=== PATIENT | male | born 1975 | race Caucasian/White ===

== ENCOUNTER 2019-03-22 20:56 | Emergency (ER) | payer OTHER ==
[2019-03-22] MEDS ORDERED: HYDROmorphone 1 MG/ML Syringe IVPUSH ONE ×2 (21:01→21:38)
[2019-03-22] MEDS ORDERED: Ondansetron 4 MG/2 ML SDV IV ONE (21:02)
[2019-03-22] MEDS ORDERED: Sodium Chloride 0.9% 1,000 ML IV ONE (21:09)
[2019-03-22] MEDS ORDERED: Albuterol 0.083% 2.5 MG/3 ML Neb Soln NEB ONE (21:14)
[2019-03-22] MEDS ORDERED: LORazepam 2 MG/ML Syringe IVPUSH ONE (21:17)
[2019-03-22 21:31] LABS: ANION GAP 16.3; CHLORIDE,CL 99 mmol/L (101-111); SODIUM,NA 136 mmol/L (135-145)
[2019-03-22] MEDS ORDERED: Iopamidol 755 Mg/ML 100 ML Bottle IVPUSH ONE (21:32)
[2019-03-22 21:52] LABS: BASE EXCESS ARTERIAL 1 mmol/L ((-2)-(+3)); BICARBONATE,ARTERIAL 27.3 mmol/L (22-26); O2 DELIVERY DEVICE NASAL CANNULA; O2 SATURATION ARTERIAL 97 % (95-100); PCO2 ARTERIAL 51 mmHg (35-45); PO2 ARTERIAL 86 mmHg (70-100)
[2019-03-22 21:57] LABS: O2 FLOW RATE 15
[2019-03-22 21:58] LABS: ALLEN TEST pos
[2019-03-22 22:08] VITALS: BP 153/97
[2019-03-22] MEDS ORDERED: Heparin Sodium 5,000 Units/ML Vial IVPUSH ONE (22:10)
[2019-03-22] MEDS ORDERED: Heparin Sodium/0.45% NaCl 25,000 UNITS/500 ML BAG IV SCH (22:15)
[2019-03-22] MEDS ORDERED: Ketorolac 30 MG/ML SDV IVPUSH ONE (22:48)
[2019-03-22] MEDS ORDERED: Ketorolac 30 MG/ML SDV ONE (22:49)
--- NOTE | 2019-03-22 22:53 | EDM.PDOC ---
"ED HPI GENERAL MEDICAL PROBLEM - General Chief Complaint: Chest Pain Stated Complaint: CHEST PAIN Time Seen by Provider: 03/22/19 21:00 Source of Information: Reports: Patient, Family History Limitations: Reports: No Limitations - History of Present Illness INITIAL COMMENTS - FREE TEXT/NARRATIVE: sudden onset right lower chest pain, worse with movement and deep breathing, started while having cigarette. Intermittent right shoulder pain to back last edna and through night from doing heavy lifting yesterday, different than this. No nasuea or vomiting, slight SOB as hurts to breathe. Right Chest Pain Score (Numeric/FACES): 10 - Related Data Allergies Allergy/AdvReac Type Severity Reaction Status Date / Time No Known Allergies Allergy Verified 03/07/16 22:34 Home Meds: Home Meds . [No Known Home Meds] 08/10/14 [History] Past Medical History Cardiovascular History: Reports: Hypertension Respiratory History: Reports: None Gastrointestinal History: Reports: None Genitourinary History: Reports: None Musculoskeletal History: Reports: None Neurological History: Reports: None Psychiatric History: Reports: None Endocrine/Metabolic History: Reports: None Hematologic History: Reports: None Immunologic History: Reports: None Oncologic (Cancer) History: Reports: None Dermatologic History: Reports: None ED ROS GENERAL - Review of Systems Review Of Systems: See Below Constitutional: Reports: Chills, Diaphoresis. Denies: Fever HEENT: Reports: No Symptoms Respiratory: Reports: Shortness of Breath, Cough Cardiovascular: Reports: No Symptoms Endocrine: Reports: No Symptoms GI/Abdominal: Reports: No Symptoms Musculoskeletal: Reports: Shoulder Pain (cyhronic) Skin: Reports: No Symptoms Neurological: Reports: No Symptoms ED EXAM, GENERAL - Physical Exam Exam: See Below Exam Limited By: No Limitations General Appearance: Alert, Anxious, Moderate Distress Eye Exam: Bilateral Eye: EOMI Ears: Normal External Exam, Hearing Grossly Normal Nose: Normal Inspection Throat/Mouth: Normal Oropharynx Head: Atraumatic, Normocephalic Neck: Normal Inspection Respiratory/Chest: Decreased Breath Sounds Cardiovascular: Normal Peripheral Pulses, Regular Rate, Rhythm, No Murmur GI/Abdominal: Normal Bowel Sounds, Soft Back Exam: Normal Inspection, Full Range of Motion Extremities: Normal Inspection, Pedal Edema Neurological: Alert, Oriented, CN II-XII Intact, Normal Cognition Psychiatric: Anxious Skin Exam: Intact, Pallor Course - Vital Signs Last Recorded V/S: Last Vital Signs Temp 96.6 F 03/22/19 20:56 Pulse 87 03/22/19 20:56 Resp 40 H 03/22/19 20:56 BP 153/97 H 03/22/19 20:56 Pulse Ox 95 03/22/19 20:56 - Orders/Labs/Meds Orders: Active Orders 24 hr Category Date Time Status EKG Documentation Completion [RC] URGENT Care 03/22/19 21:02 Active RT Aerosol Therapy [RC] ASDIRECTED Care 03/22/19 21:14 Active Labs: Laboratory Tests 03/22/19 03/22/19 03/22/19 Range/Units 21:05 21:05 21:05 WBC 12.8 H (5.0-10.0) 10^3/uL RBC 5.13 (4.6-6.2) 10^6/uL Hgb 15.9 (14.0-18.0) g/dL Hct 47.7 (40.0-54.0) % MCV 93.0 (80-100) fL MCH 31.0 (27.0-34.0) pg MCHC 33.3 (33.0-35.0) g/dL Plt Count 276 (150-450) 10^3/uL Neut % (Auto) 58.1 (42.2-75.2) % Lymph % (Auto) 25.5 (20.5-50.1) % [place] % (Auto) 12.0 H (2-8) % Eos % (Auto) 4.2 H (1.0-3.0) % Baso % (Auto) 0.2 (0.0-1.0) % PT (9.0-12.0) SEC INR (0.9-1.2) APTT (22.0-34.0) SEC D-Dimer, Quantitative 2060 H (0-400) ng/mL ABG pH (7.35-7.45) ABG pCO2 (35-45) mmHg ABG pO2 (70-100) mmHg ABG HCO3 (22-26) mmol/L ABG O2 Saturation (95-100) % ABG Base Excess ((-2)-(+3)) mmol/L Serafin Test O2 Delivery Device Oxygen Flow Rate Sodium 136 (135-145) mmol/L Potassium 3.3 L (3.6-5.0) mmol/L Chloride 99 L (101-111) mmol/L Carbon Dioxide 24.0 (21.0-31.0) mmol/L Anion Gap 16.3 BUN 10 (7-18) mg/dL Creatinine 1.0 (0.6-1.3) mg/dL Est Cr Clr Drug Dosing TNP Estimated GFR (MDRD) > 60 BUN/Creatinine Ratio 10.00 Glucose 113 H (74-105) mg/dL Lactic Acid (0.5-2.2) mmol/L Calcium 9.2 (8.4-10.2) mg/dl Total Bilirubin 0.4 (0.2-1.0) mg/dL AST 21 (10-42) IU/L ALT 20 (10-60) IU/L Alkaline Phosphatase 64 (42-121) IU/L Troponin I < 0.02 (0.00-0.02) ng/ml B-Natriuretic Peptide (0-100) pg/ml Total Protein 7.9 (6.7-8.2) g/dl Albumin 4.2 (3.2-5.5) g/dl Globulin 3.7 Albumin/Globulin Ratio 1.14 Amylase 81 (28-100) U/L Lipase 35 (22-51) U/L 03/22/19 03/22/19 03/22/19 Range/Units 21:05 21:05 21:05 WBC (5.0-10.0) 10^3/uL RBC (4.6-6.2) 10^6/uL Hgb (14.0-18.0) g/dL Hct (40.0-54.0) % MCV (80-100) fL MCH (27.0-34.0) pg MCHC (33.0-35.0) g/dL Plt Count (150-450) 10^3/uL Neut % (Auto) (42.2-75.2) % Lymph % (Auto) (20.5-50.1) % [place] % (Auto) (2-8) % Eos % (Auto) (1.0-3.0) % Baso % (Auto) (0.0-1.0) % PT 9.5 (9.0-12.0) SEC INR 1.0 (0.9-1.2) APTT (22.0-34.0) SEC D-Dimer, Quantitative (0-400) ng/mL ABG pH (7.35-7.45) ABG pCO2 (35-45) mmHg ABG pO2 (70-100) mmHg ABG HCO3 (22-26) mmol/L ABG O2 Saturation (95-100) % ABG Base Excess ((-2)-(+3)) mmol/L Serafin Test O2 Delivery Device Oxygen Flow Rate Sodium (135-145) mmol/L Potassium (3.6-5.0) mmol/L Chloride (101-111) mmol/L Carbon Dioxide (21.0-31.0) mmol/L Anion Gap BUN (7-18) mg/dL Creatinine (0.6-1.3) mg/dL Est Cr Clr Drug Dosing Estimated GFR (MDRD) BUN/Creatinine Ratio Glucose (74-105) mg/dL Lactic Acid 1.6 (0.5-2.2) mmol/L Calcium (8.4-10.2) mg/dl Total Bilirubin (0.2-1.0) mg/dL AST (10-42) IU/L ALT (10-60) IU/L Alkaline Phosphatase (42-121) IU/L Troponin I (0.00-0.02) ng/ml B-Natriuretic Peptide 8 (0-100) pg/ml Total Protein (6.7-8.2) g/dl Albumin (3.2-5.5) g/dl Globulin Albumin/Globulin Ratio Amylase (28-100) U/L Lipase (22-51) U/L 03/22/19 03/22/19 Range/Units 21:05 21:45 WBC (5.0-10.0) 10^3/uL RBC (4.6-6.2) 10^6/uL Hgb (14.0-18.0) g/dL Hct (40.0-54.0) % MCV (80-100) fL MCH (27.0-34.0) pg MCHC (33.0-35.0) g/dL Plt Count (150-450) 10^3/uL Neut % (Auto) (42.2-75.2) % Lymph % (Auto) (20.5-50.1) % [place] % (Auto) (2-8) % Eos % (Auto) (1.0-3.0) % Baso % (Auto) (0.0-1.0) % PT (9.0-12.0) SEC INR (0.9-1.2) APTT 25.5 (22.0-34.0) SEC D-Dimer, Quantitative (0-400) ng/mL ABG pH 7.35 (7.35-7.45) ABG pCO2 51 H (35-45) mmHg ABG pO2 86 (70-100) mmHg ABG HCO3 27.3 H (22-26) mmol/L ABG O2 Saturation 97 (95-100) % ABG Base Excess 1 ((-2)-(+3)) mmol/L Serafin Test pos O2 Delivery Device Nasal cannula Oxygen Flow Rate 15 Sodium (135-145) mmol/L Potassium (3.6-5.0) mmol/L Chloride (101-111) mmol/L Carbon Dioxide (21.0-31.0) mmol/L Anion Gap BUN (7-18) mg/dL Creatinine (0.6-1.3) mg/dL Est Cr Clr Drug Dosing Estimated GFR (MDRD) BUN/Creatinine Ratio Glucose (74-105) mg/dL Lactic Acid (0.5-2.2) mmol/L Calcium (8.4-10.2) mg/dl Total Bilirubin (0.2-1.0) mg/dL AST (10-42) IU/L ALT (10-60) IU/L Alkaline Phosphatase (42-121) IU/L Troponin I (0.00-0.02) ng/ml B-Natriuretic Peptide (0-100) pg/ml Total Protein (6.7-8.2) g/dl Albumin (3.2-5.5) g/dl Globulin Albumin/Globulin Ratio Amylase (28-100) U/L Lipase (22-51) U/L Meds: Medications Discontinued Medications Generic Name Dose Route Start Last Admin Trade Name Freq PRN Reason Stop Dose Admin Albuterol 2.5 mg 03/22/19 21:14 03/22/19 21:19 Proventil Neb Soln NEB 03/22/19 21:15 2.5 mg ONETIME ONE Administration Heparin Sodium (Porcine) 5,000 units 03/22/19 22:10 03/22/19 22:32 Heparin Sodium IVPUSH 03/22/19 22:11 5,000 units .BOLUS ONE Administration Hydromorphone HCl 1 mg 03/22/19 21:01 03/22/19 21:09 Dilaudid IVPUSH 03/22/19 21:02 1 mg ONETIME ONE Administration Hydromorphone HCl 1 mg 03/22/19 21:38 03/22/19 21:45 Dilaudid IVPUSH 03/22/19 21:39 1 mg ONETIME ONE Administration Sodium Chloride 1,000 mls @ 500 mls/hr 03/22/19 21:09 03/22/19 21:05 Normal Saline IV 03/22/19 23:08 500 mls/hr .BOLUS ONE Administration Heparin Sodium/Sodium Chloride 25,000 units in 500 mls @ 26 mls/hr 03/22/19 22 :15 Heparin 25,000 Units In 1/2 Ns 500 Ml IV TITRATE MIMA Protocol Iopamidol 100 ml 03/22/19 21:32 03/22/19 21:55 Isovue-370 (76%) IVPUSH 03/22/19 21:33 100 ml ONETIME ONE Administration Ketorolac Tromethamine 30 mg 03/22/19 22:48 03/22/19 22:52 Toradol IVPUSH 03/22/19 22:49 30 mg ONETIME ONE Administration Ketorolac Tromethamine Confirm 03/22/19 22:49 03/22/19 22:54 Toradol Administered 03/22/19 22:50 Not Given Dose 30 mg .ROUTE .STK-MED ONE Lorazepam 0.5 mg 03/22/19 21:17 03/22/19 21:24 Ativan IVPUSH 03/22/19 21:18 0.5 mg ONETIME ONE Administration Ondansetron HCl 4 mg 03/22/19 21:02 03/22/19 21:09 Zofran IV 03/22/19 21:03 4 mg ONETIME ONE Administration - Radiology Interpretation Free Text/Narrative:: [facility] [place] [facility] Final Radiology Report Call: [phone] assistance Online chat: [email or web address] Name: PJ GASTELUM Age: 44Years M Date: 03/22/2019 SSN: -- : 1975 Study: XR CHEST 1 VIEW FRONTAL Requesting Physician: ÓSCAR MILLER Images: 1 Addl Studies: Provided Clinical History: Contrast: Contrast Medium: Contrast Amount: Contrast Method: CONFIDENTIALITY STATEMENT This report is intended only for use by the referring physician, and only in accordance with law. If you received this in error, call [phone]. Page 1 of 1 EXAM: XR Chest, 1 View EXAM DATE/TIME: 03/22/2019 9:17 PM CLINICAL HISTORY: 44 years old, male; Signs and symptoms; Shortness of breath and other: Right chest pain TECHNIQUE: Imaging protocol: XR of the chest, 1 view. COMPARISON: CR Chest 2V 04/18/2017 9:00 AM FINDINGS: Lungs: Right basilar subsegmental atelectasis. Pleural space: Small right pleural effusion. No pneumothorax. Heart/Mediastinum: Cardiac size cannot be accurately assessed in this projection. Bones/joints: Unremarkable. IMPRESSION: Small right pleural effusion. Thank you for allowing us to participate in the care of your patient. Dictated and Authenticated by: Sergio Lama MD 03/22/2019 9:57 PM Central Time ([place] & [place]) [facility] Final Radiology Report Call: [phone] assistance Online chat: [email or web address] Name: PJ GASTELUM Age: 44Years M Date: 03/22/2019 SSN: -- : 1975 Study: CT CHEST W Requesting Physician: ÓSCAR MILLER Images: [id number] Addl Studies: Provided Clinical History: Contrast: With Contrast Medium: [id number] Contrast Amount: 97 mL Contrast Method: lac Page 1 of 2 EXAM: CT Chest With Contrast EXAM DATE/TIME: 03/22/2019 10:19 PM CLINICAL HISTORY: 44 years old, male; Signs and symptoms; Shortness of breath and other: Right sided chest pain, ddimer 0, wbc 12,000 TECHNIQUE: Imaging protocol: Axial computed tomography images of the chest with intravenous contrast. Coronal and sagittal reformatted images were created and reviewed. Radiation optimization: All CT scans at this facility use at least one of these dose optimization techniques: automated exposure control; mA and/or kV adjustment per patient size (includes targeted exams where dose is matched to clinical indication); or iterative reconstruction. Contrast material: [id number]; Contrast volume: 97 ml; Contrast route: LAC; COMPARISON: CR Chest 1V Frontal 03/22/2019 9:17 PM FINDINGS: Lungs: Right basilar subsegmental compressive atelectasis. Pleural space: Small right pleural effusion. No pneumothorax. Heart: No cardiomegaly. No pericardial effusion. Pulmonary arteries: No acute pulmonary embolus. Aorta: No thoracic aortic aneurysm or dissection. Lymph nodes: Unremarkable. No enlarged lymph nodes. Bones/joints: No acute fracture. Soft tissues: Unremarkable. PJ GASTELUM | Final Radiology Report CONFIDENTIALITY STATEMENT This report is intended only for use by the referring physician, and only in accordance with law. If you received this in error, call [phone]. Page 2 of 2 IMPRESSION: 1. No acute pulmonary embolus. 2. Small right pleural effusion. Thank you for allowing us to participate in the care of your patient. Dictated and Authenticated by: Sergio Lama MD 03/22/2019 10:37 PM Central Time ([place] & [place]) - Re-Assessments/Exams Free Text/Narrative Re-Assessment/Exam: Tx via [facility] , Dr Curry accepting of patient. Patient right side chest pain slight improvement after dilaudid, ativan and toradol. Vitals stable. Oxyegen saturation stable on nonrebreather. Departure - Departure Time of Disposition: 23:00 Disposition: DC/Tfer to Acute Hospital 02 Condition: Undetermined Clinical Impression: Atypical chest pain - Discharge Information *PRESCRIPTION DRUG MONITORING PROGRAM REVIEWED*: No *COPY OF PRESCRIPTION DRUG MONITORING REPORT IN PATIENT YOSELIN: No Referrals: PCP,None [Primary Care Provider] - Forms: ED Department Discharge - My Orders Last 24 Hours: My Active Orders 03/22/19 21:02 EKG Documentation Completion [RC] URGENT 03/22/19 21:14 RT Aerosol Therapy [RC] ASDIRECTED - Assessment/Plan Last 24 Hours: My Active Orders 03/22/19 21:02 EKG Documentation Completion [RC] URGENT 03/22/19 21:14 RT Aerosol Therapy [RC] ASDIRECTED"
== END 2019-03-22 23:00 ==
LOC: DL.ED 20:56
DX: R07.89 Other chest pain (principal); I10 Essential (primary) hypertension
CPT/HCPCS: 36415; 36600; 71045; 71260; 80053; 82150; 82803; 83605; 83690; 83880; 84484; 85025; 85379; 85610; 85730; 93005; 94640; 96365; 96366; 96375; 96376; 99285; J1170; J1644; J1885; J2060; J2405; J7030; Q9967; J7613-GY

== ENCOUNTER 2021-02-12 08:41 | Emergency (ER) | payer BC, OTHER ==
--- NOTE | 2021-02-12 08:42 | EDM.PDOC ---
ED HPI GENERAL MEDICAL PROBLEM - General Chief Complaint: General Stated Complaint: AMBULANCE Time Seen by Provider: 02/12/21 08:42 Source of Information: Reports: Patient, Old Records, RN, RN Notes Reviewed History Limitations: Reports: No Limitations - History of Present Illness INITIAL COMMENTS - FREE TEXT/NARRATIVE: Pt arrives to ER from work by [employer] with report that he was at work when he experienced sudden onset of "room spin dizziness" associated with intense nausea. Pt states he was walking across the room and quickly turned around that the dizziness happened. He denies tinnitus, headache, vomiting, neck pain, visual changes, ear pain, muffled hearing, or nasal congestion. Pt states he became diaphoretic and felt some palpitations briefly. Pt admits to anxiety and mild shortness of breath. He is a ferry terminal agent smoker. 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 Hx of HTN, but has not taken his Losartan 25mg for several weeks. Onset: Today, Sudden Duration: Resolved Prior to Arrival Location: Reports: Generalized Severity: Severe Improves with: Reports: None Worsens with: Reports: Movement Associated Symptoms: Reports: No Other Symptoms - Related Data Allergies Allergy/AdvReac Type Severity Reaction Status Date / Time No Known Allergies Allergy Verified 02/12/21 08:55 Home Meds: Home Meds Losartan Potassium 25 mg PO DAILY 02/12/21 [History] Past Medical History HEENT History: Reports: Impaired Vision Cardiovascular History: Reports: Hypertension Respiratory History: Reports: COPD Gastrointestinal History: Reports: None Genitourinary History: Reports: None Musculoskeletal History: Reports: None Neurological History: Reports: None Psychiatric History: Reports: Anxiety Endocrine/Metabolic History: Reports: Obesity/BMI 30+ Hematologic History: Reports: None Immunologic History: Reports: None Oncologic (Cancer) History: Reports: None Dermatologic History: Reports: None Social & Family History - Family History Family Medical History: No Pertinent Family History - Tobacco Use Tobacco Use Status *Q: Current Every Day Tobacco User Tobacco Use Within Last Twelve Months: Cigarettes - Caffeine Use Caffeine Use: Reports: Soda - Alcohol Use Alcohol Use History: Yes Alcohol Use Frequency: Not Used in Over 1 Year - Living Situation & Occupation Living situation: Reports: , with Spouse Occupation: Employed ED ROS GENERAL - Review of Systems Review Of Systems: Comprehensive ROS is negative, except as noted in HPI. ED EXAM, GENERAL - Physical Exam Exam: See Below Exam Limited By: No Limitations General Appearance: Alert, No Apparent Distress, Obese Eye Exam: Bilateral Eye: EOMI, Nystagmus (Lateral gaze), PERRL Ears: Normal External Exam, Normal Canal, Hearing Grossly Normal, Normal TMs Nose: Normal Inspection, Normal Mucosa, No Blood Throat/Mouth: Normal Lips, Normal Voice, No Airway Compromise Head: Atraumatic, Normocephalic Neck: Normal Inspection, Supple, Non-Tender, Full Range of Motion Respiratory/Chest: No Respiratory Distress, Lungs Clear, No Accessory Muscle Use, Chest Non-Tender, Decreased Breath Sounds Cardiovascular: Regular Rate, Rhythm, No Edema GI/Abdominal: Normal Bowel Sounds, Soft, Non-Tender, Other (Benign obese abdomen) Back Exam: Normal Inspection Extremities: Normal Inspection, No Pedal Edema. No: Ellie's Sign Neurological: Alert, Oriented, Normal Cognition, No Motor/Sensory Deficits Psychiatric: Normal Affect, Normal Mood Skin Exam: Warm, Dry, Intact, Normal Color, No Rash #1 Interpretation EKG Date: 02/12/21 Time: 08:53 Rhythm: Other (SR) Rate (Beats/Min): 54 [place]: LAD-Left [place] Deviation (borderline) P-Wave: Present QRS: Other (abnormal R wave progression, early transition) ST-T: Other (Nonspecific T wave changes) QT: Normal Comparison: NA - No Prior EKG Course - Vital Signs Last Recorded V/S: Last Vital Signs Temp 96.9 F 02/12/21 08:49 Pulse 63 02/12/21 08:49 Resp 20 02/12/21 08:49 BP 160/70 H 02/12/21 10:00 Pulse Ox 98 02/12/21 08:49 - Orders/Labs/Meds Orders: Active Orders 24 hr Category Date Time Status EKG 12 Lead [EKG Documentation Completion] [RC] STAT Care 02/12/21 08:50 Active Peripheral IV Care [RC] . DIRECTED Care 02/12/21 08:51 Active UA RFX OFELIA AND CULT IF INDIC [URIN] Stat Lab 02/12/21 10:23 Ordered Sodium Chloride 0.9% [Saline Flush] Med 02/12/21 08:51 Active 10 ml FLUSH ASDIRECTED PRN Peripheral IV Insertion Adult [OM.PC] Stat Oth 02/12/21 08:50 Ordered Medication Orders Sodium Chloride (Sodium Chloride 0.9% 10 Ml Syringe) 10 ml FLUSH ASDIRECTED PRN PRN Reason: Keep Vein Open Last Admin: 02/12/21 09:11 Dose: 10 ml Documented by: NEAL Labs: Laboratory Tests 02/12/21 02/12/21 02/12/21 Range/Units 08:58 08:58 08:58 WBC 8.3 (5.0-10.0) 10^3/uL RBC 5.24 (4.6-6.2) 10^6/uL Hgb 16.0 (14.0-18.0) g/dL Hct 48.0 (40.0-54.0) % MCV 91.6 (80-100) fL MCH 30.5 (27.0-34.0) pg MCHC 33.3 (33.0-35.0) g/dL Plt Count 227 (150-450) 10^3/uL Neut % (Auto) 57.5 (42.2-75.2) % Lymph % (Auto) 28.1 (20.5-50.1) % [place] % (Auto) 9.9 H (2-8) % Eos % (Auto) 3.9 H (1.0-3.0) % Baso % (Auto) 0.6 (0.0-1.0) % Sodium 139 (136-145) mmol/L Potassium 3.9 (3.5-5.1) mmol/L Chloride 102 (98-107) mmol/L Carbon Dioxide 29 (21-32) mmol/L Anion Gap 11.9 (7-13) mEq/L BUN 17 (7-18) mg/dL Creatinine 1.05 (0.70-1.30) mg/dL Est Cr Clr Drug Dosing 103.95 mL/min Estimated GFR (MDRD) > 60 BUN/Creatinine Ratio 16.2 (No establ ref range) Glucose 90 (70-99) mg/dL Hemoglobin A1c 5.8 H (<5.7) % Calcium 8.1 L (8.5-10.1) mg/dL Magnesium 2.0 (1.8-2.4) mg/dL Total Bilirubin 0.2 (0.2-1.0) mg/dL AST 16 (15-37) U/L ALT 31 (16-63) U/L Alkaline Phosphatase 80 (46-116) U/L Troponin I < 0.017 (0.000-0.056) ng/mL Total Protein 6.9 (6.4-8.2) g/dL Albumin 3.4 (3.4-5.0) g/dL Globulin 3.5 Albumin/Globulin Ratio 1.0 TSH, Ultra Sensitive 0.70 (0.36-3.74) uIU/mL Meds: Medications Generic Name Dose Route Start Last Admin Trade Name Freq PRN Reason Stop Dose Admin Sodium Chloride 10 ml 02/12/21 08:51 02/12/21 09:11 Sodium Chloride 0.9% 10 Ml Syringe FLUSH 10 ml ASDIRECTED PRN Administration Keep Vein Open Discontinued Medications Generic Name Dose Route Start Last Admin Trade Name Freq PRN Reason Stop Dose Admin Hydralazine HCl 20 mg 02/12/21 08:53 02/12/21 09:10 Hydralazine 20 Mg/Ml Sdv IVPUSH 02/12/21 08:54 20 mg ONETIME ONE Administration Losartan Potassium 50 mg 02/12/21 09:16 02/12/21 10:00 Losartan 50 Mg Tab PO 02/12/21 09:17 50 mg ONETIME ONE Administration Meclizine HCl 25 mg 02/12/21 08:53 02/12/21 09:10 Meclizine 12.5 Mg Tab PO 02/12/21 08:54 25 mg ONETIME ONE Administration - Radiology Interpretation Free Text/Narrative:: XR Chest: no acute findings per radiologist report. [facility] Final Radiology Report Call: [phone] assistance Online chat: [email or web address] Name: PJ GASTELUM Age: 46Years M Date: 02/12/2021 SSN: -- : 1975 Study: CT HEAD WO CONT Requesting Physician: LIZET GIRON Images: [id number] Addl Studies: Provided Clinical History: new onset vertigo, severe hypertension Contrast: Without Contrast Medium: Contrast Amount: Contrast Method: Page 1 of 2 PROCEDURE INFORMATION: Exam: CT Head Without Contrast Exam date and time: 02/12/2021 9:49 AM Age: 46 years old Clinical indication: Other: New onset vertigo, severe hypertension TECHNIQUE: Imaging protocol: Computed tomography of the head without contrast. Radiation optimization: All CT scans at this facility use at least one of these dose optimization techniques: automated exposure control; mA and/or kV adjustment per patient size (includes targeted exams where dose is matched to clinical indication); or iterative reconstruction. Other technique: STROKE PROTOCOL was implemented. COMPARISON: CT Head wo Cont 08/09/2014 11:24 PM FINDINGS: Brain: Normal. No hemorrhage. Unremarkable white matter. No mass effect. Cerebral ventricles: No ventriculomegaly. Bones/joints: Unremarkable. No acute fracture. Paranasal sinuses: Visualized sinuses are unremarkable. No fluid levels. Mastoid air cells: Complete opacification of right mastoid air cells. Soft tissues: Unremarkable. IMPRESSION: No acute findings. Stable complete opacification of right mastoid air cells. ASSESSMENT: ASPECTS (Sandra Stroke Program Early CT Score) is 10. Thank you for allowing us to participate in the care of your patient. PJ GASTELUM | Final Radiology Report CONFIDENTIALITY STATEMENT This report is intended only for use by the referring physician, and only in accordance with law. If you received this in error, call [phone]. Page 2 of 2 Dictated and Authenticated by: Maria E Guzman MD 02/12/2021 10:13 AM Central Time ([place] & [place]) Departure - Departure Time of Disposition: 10:24 Disposition: Home, Self-Care 01 Condition: Good Clinical Impression: Vertigo, Uncontrolled hypertension, Pre-diabetes - Discharge Information *PRESCRIPTION DRUG MONITORING PROGRAM REVIEWED*: Not Applicable *COPY OF PRESCRIPTION DRUG MONITORING REPORT IN PATIENT YOSELIN: Not Applicable Instructions: Vertigo, Hypertension, Adult, Prediabetes Forms: ED Department Discharge Additional Instructions: Rx: Meclizine 25mg Take your blood pressure medication exactly as prescribed. Low sugar, low carbohydrate diet. Look at [email or web address] for more information. Follow up in clinic this week for vertigo and blood pressure recheck. Sepsis Event Note (ED) - Focused Exam Vital Signs: Vital Signs Temp Pulse Resp BP BP Pulse Ox 02/12/21 10:00 160/70 H 02/12/21 08:49 96.9 F 63 20 198/99 H 98 - My Orders Last 24 Hours: My Active Orders 02/12/21 08:50 EKG 12 Lead [EKG Documentation Completion] [RC] STAT Peripheral IV Insertion Adult [OM.PC] Stat 02/12/21 08:51 Peripheral IV Care [RC] . DIRECTED Sodium Chloride 0.9% [Saline Flush] 10 ml FLUSH ASDIRECTED PRN 02/12/21 10:23 UA RFX OFELIA AND CULT IF INDIC [URIN] Stat - Assessment/Plan Last 24 Hours: My Active Orders 02/12/21 08:50 EKG 12 Lead [EKG Documentation Completion] [RC] STAT Peripheral IV Insertion Adult [OM.PC] Stat 02/12/21 08:51 Peripheral IV Care [RC] . DIRECTED Sodium Chloride 0.9% [Saline Flush] 10 ml FLUSH ASDIRECTED PRN 02/12/21 10:23 UA RFX OFELIA AND CULT IF INDIC [URIN] Stat
[2021-02-12] MEDS ORDERED: Sodium Chloride 0.9% 10 ML Syringe FLUSH PRN (08:51)
[2021-02-12] MEDS ORDERED: Meclizine 12.5 MG Tab PO ONE (08:53)
[2021-02-12] MEDS ORDERED: hydrALAZINE 20 MG/ML SDV IVPUSH ONE (08:53)
--- NOTE | 2021-02-12 09:12 | CR ---
PROCEDURE INFORMATION: Exam: XR Chest Exam date and time: 02/12/2021 9:01 AM Age: 46 years old Clinical indication: Shortness of breath TECHNIQUE: Imaging protocol: XR of the chest. Views: 1 view. COMPARISON: CT Chest w Cont 03/22/2019 10:19 PM FINDINGS: Lungs: Shallow inspiration accentuates the heart size and pulmonary vascularity. No focal consolidation. Pleural spaces: Unremarkable. No pleural effusion. No pneumothorax. Heart/Mediastinum: Unremarkable. No cardiomegaly. Bones/joints: Unremarkable. Other findings: Shallow inspiration. IMPRESSION: No acute findings.
[2021-02-12] MEDS ORDERED: Losartan 50 MG Tab PO ONE (09:16)
[2021-02-12 09:26] LABS: HEMOGLOBIN A1C 5.8 % (<5.7)
[2021-02-12 09:42] LABS: ANION GAP 11.9 mEq/L (7-13); CHLORIDE,CL 102 mmol/L (98-107); SODIUM,NA 139 mmol/L (136-145)
[2021-02-12 10:02] VITALS: BP 160/70
--- NOTE | 2021-02-12 10:13 | CT ---
PROCEDURE INFORMATION: Exam: CT Head Without Contrast Exam date and time: 02/12/2021 9:49 AM Age: 46 years old Clinical indication: Other: New onset vertigo, severe hypertension TECHNIQUE: Imaging protocol: Computed tomography of the head without contrast. Radiation optimization: All CT scans at this facility use at least one of these dose optimization techniques: automated exposure control; mA and/or kV adjustment per patient size (includes targeted exams where dose is matched to clinical indication); or iterative reconstruction. Other technique: STROKE PROTOCOL was implemented. COMPARISON: CT Head wo Cont 08/09/2014 11:24 PM FINDINGS: Brain: Normal. No hemorrhage. Unremarkable white matter. No mass effect. Cerebral ventricles: No ventriculomegaly. Bones/joints: Unremarkable. No acute fracture. Paranasal sinuses: Visualized sinuses are unremarkable. No fluid levels. Mastoid air cells: Complete opacification of right mastoid air cells. Soft tissues: Unremarkable. IMPRESSION: No acute findings. Stable complete opacification of right mastoid air cells. ASSESSMENT: ASPECTS ([place] Stroke Program Early CT Score) is 10.
[2021-02-12 10:29] VITALS: PULSE 72
== END 2021-02-12 10:45 | disposition home or self-care (01) ==
LOC: DL.ED 08:41
DX: I10 Essential (primary) hypertension (principal); R73.03 Prediabetes; J44.9 Chronic obstructive pulmonary disease, unspecified; E66.9 Obesity, unspecified; Z72.0 Tobacco use; Z68.41 Body mass index [BMI] 40.0-44.9, adult; Z79.899 Other long term (current) drug therapy
CPT/HCPCS: 36415; 70450; 71045; 80053; 81003; 83036; 83735; 84443; 84484; 85025; 93005; 96374; 99283; 99285-25; A9270-GY; J0360

== ENCOUNTER 2022-09-11 09:04 | Emergency (ER) | payer OTHER ==
[2022-09-11 09:20] VITALS: BP 182/89; PULSE 47
[2022-09-11 09:52] LABS: ANION GAP 11.6 mEq/L (7-13); CHLORIDE,CL 102 mmol/L (98-107); SODIUM,NA 140 mmol/L (136-145)
[2022-09-11 09:53] LABS: ACETAMINOPHEN 0 ug/mL (10-30 (Therapeutic)); ESTIMATED GFR 79 mL/min (>=60)
[2022-09-11 10:12] LABS: CORONAVIRUS COVID-19 NAA NEGATIVE (NEGATIVE)
[2022-09-11] MEDS ORDERED: Meclizine 12.5 MG Tab PO ONE (10:34)
[2022-09-11] MEDS ORDERED: Sodium Chloride 0.9% 1,000 ML IV ONE (10:35)
[2022-09-11] MEDS ORDERED: Ondansetron 4 MG Tab.DIS PO ONE (12:12)
== END 2022-09-11 12:20 | disposition home or self-care (01) ==
LOC: DL.ED 09:04
DX: R42 Dizziness and giddiness (principal); J44.9 Chronic obstructive pulmonary disease, unspecified; I10 Essential (primary) hypertension; F17.210 Nicotine dependence, cigarettes, uncomplicated; E66.9 Obesity, unspecified; Z68.41 Body mass index [BMI] 40.0-44.9, adult; Z79.899 Other long term (current) drug therapy; Z20.822 Contact with and (suspected) exposure to COVID-19
CPT/HCPCS: 0240U; 36415; 80053; 80143; 80179; 80307; 82150; 83605; 83690; 83735; 84484; 85025; 85379; 85610; 93005; 96360; 99284; A9270; J7030